=== PATIENT | female | born 1995 | race Caucasian/White ===

== ENCOUNTER → 2016-09-22 | Outpatient (CLI) | payer OTHER ==
[~2016-09-22] MED LIST: AMOX875T PO; IBUP600T44 PO; MEDR150I IM; NAPR-1169 PO
== END | disposition home or self-care (01) ==
LOC: C.PATHSPEC 14:21
PROVIDERS: ATTEND Obstetrics & Gynecology
DX: R87.613 High grade squamous intraepithelial lesion on cytologic smear of cervix (HGSIL) (principal)

== ENCOUNTER 2016-10-01 16:35 | Emergency (ER) | payer OTHER ==
[~2016-10-01] VITALS: Ht 170.2 cm; Wt 70.8 kg
[2016-10-01 16:46] VITALS: TEMP 36.9; Ht 170.2 cm; Wt 70.8 kg
[2016-10-01] MEDS ORDERED: SODIUM CHLORIDE 0.9% 1000ML 500 ML IV STA (17:23)
--- NOTE | 2016-10-01 17:32 | EMERGENCY ROOM VISIT NOTE ---
History Report prepared by Kim: Maria C Camacho Under the Supervision of: Dr. Malik Martino M.D. First contact with patient: 17:15 Chief Complaint: RESPIRATORY PROBLEMS Stated Complaint: CHEST PAIN Nursing Triage Summary: currently being treated for a sinus infection, pt on augmentin, today at 1500 pt developed LUQ pain radiating up to her chest and L shoulder, pt states it hurts to take a deep breath History of Present Illness The patient is a 20 year old female who presents to the Emergency Room with complaints of persistent left upper quadrant abdominal pain that radiates to chest and left shoulder. This pain started around 1500 today. She rates her pain a 9/10 in severity. This pain is worse with breathing and movement of her left shoulder. The patient reports that she experienced shortness of breath when the symptoms began but she is no longer experiencing this symptom. The patient denies recent trauma to her left side. She does admit to recent travel to [place] and [place]. The patient is currently being treated with Augmentin for a sinus infection. She was evaluated at [facility] prior to arrival in the ED today where an EKG was performed. Source of History: patient Onset: 1500 today Position: chest (left), shoulder (left), abdomen (LUQ) Symptom Intensity: 9/10 Modifying Factors (Worsening): breathing, movement Associated Symptoms: No SOB Review of Systems See HPI for pertinent positives & negatives. A total of 10 systems reviewed and were otherwise negative. Past Medical & Surgical Surgical Problems: (1) H/O wisdom tooth extraction (2) Hx of tonsillectomy Family History No pertinent family history Social History Smoking Status: Never Smoker Drug Use: none Marital Status: single Housing Status: lives with roommate Occupation Status: student Current/Historical Medications Scheduled Amoxicillin & Pot Clavulanate (Augmentin 875-125 mg), 1 TAB PO BID Ibuprofen (Motrin), 600 MG PO TID Medroxyprogesterone Acetate (C (Depo-Provera Contraceptiv), 150 MG IM UD Allergies Coded Allergies: Sumatriptan (Verified Allergy, Unknown, flushes skin, 10/01/16) Physical Exam Vital Signs Date Time Temp Pulse Resp B/P Pulse Ox O2 Delivery O2 Flow Rate FiO2 10/01/16 18:20 71 16 128/89 98 Room Air 10/01/16 18:03 92 10/01/16 16:48 99 Room Air 2/8/17 16:46 36.9 93 18 153/86 97 Room Air Physical Exam GENERAL: Patient is in no acute distress. HEENT: No acute trauma, normocephalic atraumatic, mucous membranes moist, no nasal congestion, no scleral icterus. NECK: No stridor, no adenopathy, no meningismus, trachea is midline. LUNGS: Clear to auscultation bilaterally, no wheeze, no rhonchi, breath sounds equal. CHEST: Tenderness to left anterior and lateral chest wall. No rash. HEART: Without murmurs gallops or rubs, regular rate and rhythm. ABDOMEN: Soft, nontender, bowel sounds positive, no hernias, no peritonitis. EXTREMITIES: No cyanosis or edema, full range of motion of all the joints without pain or difficulty, no signs for acute trauma. NEUROLOGIC: Oriented x 3, no acute motor or sensory deficits, no focal weakness. SKIN: No rash, no jaundice, no diaphoresis. Medical Decision & Procedures ER Provider Diagnostic Interpretation: X-ray results as stated below per interpretation by me and the radiologist: CHEST ONE VIEW PORTABLE CLINICAL HISTORY: Atypical chest pain COMPARISON STUDY: No previous studies for comparison. FINDINGS: The cardiac and mediastinal contours are normal. There is no evidence of focal pulmonary consolidation. There is no evidence of failure. No pleural effusions are visualized.[ IMPRESSION: No active disease in the chest. Electronically signed by: Beau Evans M.D. 10/01/2016 5:47 PM Dictated Date/Time: 10/01/2016 5:47 PM Laboratory Results 10/01/16 18:00 Red Blood Count 4.66, Mean Corpuscular Volume 86.5, Mean Corpuscular Hemoglobin 30.7, Mean Corpuscular Hemoglobin Concent 35.5, Mean Platelet Volume 10.1, Neutrophils (%) (Auto) 74.6, Lymphocytes (%) (Auto) 18.2, Monocytes (%) (Auto) 5.8, Eosinophils (%) (Auto) 0.6, Basophils (%) (Auto) 0.4, Neutrophils # (Auto) 10.58, Lymphocytes # (Auto) 2.58, Monocytes # (Auto) 0.82, Eosinophils # (Auto) 0.09, Basophils # (Auto) 0.05 10/01/16 18:00 Test 10/01/16 18:00 10/01/16 18:05 White Blood Count 14.18 K/uL (4.8-10.8) Red Blood Count 4.66 M/uL (4.2-5.4) Hemoglobin 14.3 g/dL (12.0-16.0) Hematocrit 40.3 % (37-47) Mean Corpuscular Volume 86.5 fL (80-100) Mean Corpuscular Hemoglobin 30.7 pg (25-34) Mean Corpuscular Hemoglobin Concent 35.5 g/dl (32-36) Platelet Count 251 K/uL (130-400) Mean Platelet Volume 10.1 fL (7.4-10.4) Neutrophils (%) (Auto) 74.6 % Lymphocytes (%) (Auto) 18.2 % Monocytes (%) (Auto) 5.8 % Eosinophils (%) (Auto) 0.6 % Basophils (%) (Auto) 0.4 % Neutrophils # (Auto) 10.58 K/uL (1.4-6.5) Lymphocytes # (Auto) 2.58 K/uL (1.2-3.4) Monocytes # (Auto) 0.82 K/uL (0.11-0.59) Eosinophils # (Auto) 0.09 K/uL (0-0.5) Basophils # (Auto) 0.05 K/uL (0-0.2) RDW Standard Deviation 37.7 fL (36.4-46.3) RDW Coefficient of Variation 12.0 % (11.5-14.5) Immature Granulocyte % (Auto) 0.4 % Immature Granulocyte # (Auto) 0.06 K/uL (0.00-0.02) Anion Gap 11.0 mmol/L (3-11) Est Creatinine Clear Calc Drug Dose 118.6 ml/min Estimated GFR () 136.5 Estimated GFR (Non- 117.7 BUN/Creatinine Ratio 22.7 (10-20) Calcium Level 9.3 mg/dl (8.5-10.1) Bedside D-Dimer 232 ng/mlFEU (0-450) Bedside Troponin I 0.000 ng/ml (0-0.045) Laboratory results reviewed by me. Medications Administered Medications (Trade) Dose Ordered Sig/Sharon Route Start Time Stop Time Status Last Admin Dose Admin Sodium Chloride (Nss 1000ml) 500 ml @ 999 mls/hr Q31M STAT IV 10/01/16 17:23 10/01/16 17:53 DC 10/01/16 17:57 999 MLS/HR Ketorolac Tromethamine (Toradol Inj) 30 mg NOW STAT IV 10/01/16 18:15 10/01/16 18:17 DC 10/01/16 18:20 30 MG ECG Indication: chest pain Rate (beats per minute): 78 Rhythm: normal sinus Findings: no acute ischemic change, no ectopy ED Course 171: The patient was evaluated in room C12. A complete history and physical exam was performed. 172: Sodium Chloride 500 ml @ 999 mls/hr IV. 1811: The patient is requesting pain medication. I will order Toradol. 1814: Ordered Toradol Injection 30 mg IV. 1840: Reevaluated the patient. Discussed results and discharge instructions: She verbalized understanding and agreement. The patient is ready for discharge. Medical Decision Differential diagnosis includes but is not limited to: Musculoskeletal pain, pulmonary embolism, pneumonia, aortic dissection, pneumothorax, bronchitis, cardiac ischemia There is a mild leukocytosis which could be consistent with infection or just her pain. No concerning anemia. No significant electrolyte abnormality, kidney failure. Cardiac enzyme testing 1 is not consistent with acute cardiac injury. EKG shows a normal sinus rhythm, no acute ischemia. D-dimer testing is negative. With a negative d-dimer and my low suspicion for PE, I will stop the workup for this diagnosis. Chest film shows no mediastinal widening, pneumonia or pneumothorax. The patient presents with left-sided chest pain which is reproducible. She is afebrile, she is not hypoxic. She is in no significant distress. Her pain is likely musculoskeletal. The patient was given IV saline and IV Toradol, she is being discharged with Motrin, heat, rest. She will finish her course of Augmentin. If worsening, she can return. Impression Primary Impression: Left sided chest pain Scribe Attestation The scribe's documentation has been prepared under my direction and personally reviewed by me in its entirety. I confirm that the note above accurately reflects all work, treatment, procedures, and medical decision making performed by me. Departure Information Dispostion Home / Self-Care Prescriptions Ibuprofen (Motrin) 600 Mg Tab 600 MG PO TID, #15 TAB With Food Prov: Malik Martino M.D. 10/01/16 Referrals Kelly Blanton C.R.N.P. (PCP) Forms HOME CARE DOCUMENTATION FORM, IMPORTANT VISIT INFORMATION, WORK / SCHOOL INSTRUCTIONS Patient Instructions My [facility] Additional Instructions motrin 600 mg 3x per day for 5 days heat to the chest wall finish all the augmentin that was prescribed return for worsening pain, shortness or breath, fever return if not improving heart and lung testing today was ok
--- NOTE | 2016-10-01 17:48 | DIAGNOSTIC IMAGING REPORT ---
CHEST ONE VIEW PORTABLE CLINICAL HISTORY: Atypical chest pain COMPARISON STUDY: No previous studies for comparison. FINDINGS: The cardiac and mediastinal contours are normal. There is no evidence of focal pulmonary consolidation. There is no evidence of failure. No pleural effusions are visualized.[ IMPRESSION: No active disease in the chest. Electronically signed by: Beau Evans M.D. 10/01/2016 5:47 PM Dictated Date/Time: 10/01/2016 5:47 PM
[2016-10-01] MEDS ORDERED: MEDR150I IM (18:11)
[2016-10-01] MEDS ORDERED: AMOX875T PO (18:11)
[2016-10-01 18:14] LABS: BASO % 0.4 %; BASO ABS # 0.05 K/uL (0-0.2); COMPLETE YES; EOS % 0.6 %; HEMATOCRIT 40.3 % (37-47); IG% 0.4 %; LYMPH % 18.2 %; LYMPH ABS # 2.58 K/uL (1.2-3.4); MEAN CELL VOLUME 86.5 fL (80-100); MEAN CORPUSCULAR HEMOGLOBIN 30.7 pg (25-34); MEAN CORPUSCULAR HGB CONC 35.5 g/dl (32-36); MEAN PLATELET VOLUME 10.1 fL (7.4-10.4); MONO % 5.8 %; NEUT % 74.6 %; PLATELET COUNT 251 K/uL (130-400); RED BLOOD COUNT 4.66 M/uL (4.2-5.4); WHITE BLOOD COUNT 14.18 K/uL (4.8-10.8)
[2016-10-01] MEDS ORDERED: KETOROLAC TROMETHAMINE 30 MG/ML VIAL IV STA (18:15)
[2016-10-01 18:29] LABS: BUN/CREATININE RATIO 22.7 (10-20); CALCIUM 9.3 mg/dl (8.5-10.1); CREATININE 0.73 mg/dl (0.60-1.20); POTASSIUM 3.4 mmol/L (3.5-5.1)
[2016-10-01] MEDS ORDERED: IBUP600T44 PO (18:47)
[2016-10-01 19:16] VITALS: BP 105/74; PULSE 77; O2SAT 99
== END 2016-10-01 19:17 | disposition home or self-care (01) ==
LOC: C.EDB 16:37 → C.EDC 19:17
DX: R07.9 Chest pain, unspecified (principal)

== ENCOUNTER 2016-10-19 01:34 | Emergency (ER) | payer OTHER ==
[~2016-10-19] VITALS: Ht 170.2 cm; Wt 72.0 kg
[~2016-10-19 01:34] MED LIST changes: -NAPR-1169 PO
[2016-10-19 01:48] VITALS: TEMP 37.1; Ht 170.2 cm; Wt 72.0 kg
[2016-10-19] MEDS ORDERED: SODIUM CHLORIDE 0.9% 500ML 500 ML IV STA (03:01)
[2016-10-19] MEDS ORDERED: KETOROLAC TROMETHAMINE 30 MG/ML VIAL IV STA (03:01)
[2016-10-19 03:07] VITALS: O2SAT 97
[2016-10-19 03:20] LABS: BASO % 0.6 %; BASO ABS # 0.04 K/uL (0-0.2); COMPLETE YES; EOS % 1.7 %; HEMATOCRIT 40.8 % (37-47); IG% 0.8 %; LYMPH % 47.2 %; LYMPH ABS # 3.05 K/uL (1.2-3.4); MEAN CELL VOLUME 86.6 fL (80-100); MEAN CORPUSCULAR HEMOGLOBIN 30.8 pg (25-34); MEAN CORPUSCULAR HGB CONC 35.5 g/dl (32-36); MEAN PLATELET VOLUME 10.5 fL (7.4-10.4); MONO % 6.5 %; NEUT % 43.2 %; PLATELET COUNT 249 K/uL (130-400); RED BLOOD COUNT 4.71 M/uL (4.2-5.4); WHITE BLOOD COUNT 6.46 K/uL (4.8-10.8)
[2016-10-19 03:23] LABS: URINE APPEARANCE CLEAR (CLEAR); URINE BILIRUBIN NEG (NEG); URINE COLOR YELLOW; URINE NITRITE NEG (NEG); URINE SPECIFIC GRAVITY 1.004 (1.000-1.030); UROBILINOGEN NEG (NEG); ZZUR CULT IF INDIC CLEAN CATCH NO
[2016-10-19 03:26] LABS: PARTIAL THROMBOPLASTIN RATIO 1.1; PROTHROMBIN TIME (PATIENT) 10.8 SECONDS (9.0-12.0)
[2016-10-19 03:29] LABS: CALCIUM 8.2 mg/dl (8.5-10.1); MAGNESIUM 2.2 mg/dl (1.8-2.4)
[2016-10-19 03:29] LABS: MANUAL MICROSCOPIC REQUIRED? NO; REVIEW REQ? NO
[2016-10-19 03:30] LABS: CREATININE 0.74 mg/dl (0.60-1.20)
[2016-10-19 03:31] LABS: BUN/CREATININE RATIO 14.4 (10-20)
[2016-10-19 03:33] LABS: ALB/GLOB RATIO 1.1 (0.9-2)
[2016-10-19 03:49] LABS: CKMB/CK RATIO 0.6 (0-3.0)
[2016-10-19] MEDS ORDERED: NAPR-1169 PO (05:06)
--- NOTE | 2016-10-19 05:07 | EMERGENCY ROOM VISIT NOTE ---
History First contact with patient: 02:15 Chief Complaint: CHEST PAIN Stated Complaint: CHEST PAIN,HARD TO BREATHE Nursing Triage Summary: Triage Notes: "Patient states, "I feel like my heart is coming out of my chest. " Seen here x1 week ago for same s/s. " History of Present Illness The patient is a 20 year old female who presents to the Emergency Department by private vehicle for evaluation of her chest discomfort, palpitations, and difficulty with breathing. She was seen a week ago for similar symptoms. She reports that initially the pain was located to the LEFT-sided chest. She now describes RIGHT-sided chest, rib pain. She does report that she tripped earlier and kind of jostled as she almost fell. Since then, she's had pain to the RIGHT-sided lower ribs. She is tried nothing [id number] for her symptoms. She rates her current discomfort as 8/10. She denies any fevers, chills, recent illness, hemoptysis, nausea, vomiting, or abdominal pain. She reports no recent long-distance travel. She does not use control. She is not a smoker. There is no family history of blood clots or bleeding disorders otherwise. Review of Systems A complete 10-point Review of Systems was discussed with the patient, with pertinent positives and negatives listed in the History of Present Illness. All remaining Review of Systems questions can be considered negative unless otherwise specified. Past Medical/Surgical History Surgical Problems: (1) H/O wisdom tooth extraction (2) Hx of tonsillectomy Family History No pertinent family history Social History Smoking Status: Never Smoker Smokeless Tobacco Use: No Drug Use: none Marital Status: single Housing Status: lives with roommate Occupation Status: student Current/Historical Medications Scheduled Medroxyprogesterone Acetate (C (Depo-Provera Contraceptiv), 150 MG IM UD Naproxen (Naprosyn), 500 MG PO BID Allergies Coded Allergies: Sumatriptan (Verified Allergy, Unknown, flushes skin, 10/01/16) Physical Exam Vital Signs Date Time Temp Pulse Resp B/P Pulse Ox O2 Delivery O2 Flow Rate FiO2 10/19/16 05:25 97 18 109/71 99 10/19/16 03:25 92 18 109/65 97 Room Air 10/19/16 03:07 97 Room Air 10/19/16 02:04 97 Room Air 10/19/16 01:48 37.1 131 18 129/95 97 Room Air Pain Rating (0-10): 8 Physical Exam VITAL SIGNS - Vital signs and nursing notes were reviewed. GENERAL - 20-year-old female appearing her stated age who is in no acute distress. Communicates well with provider and answers questions appropriately. HEAD - NC/AT. EYES - PERRL with EOMI bilaterally. Sclera anicteric. Palpebral conjunctiva pink and moist with no injection noted. EARS - No deformities of external structures noted on gross examination bilaterally. No pain elicited with palpation of the tragus bilaterally. External auditory canals without discharge or otorrhea. Tympanic membranes pearly leslie without retraction or bulging. NOSE - Midline and without cyanosis. No epistaxis or purulent drainage noted. Septum midline without deviation or septal hematoma noted. MOUTH/OROPHARYNX - Without perioral cyanosis. Buccal mucosa pink and moist and without leukoplakia. Tongue midline with equal elevation of palate bilaterally. No tonsillar hypertrophy, erythema, or exudates noted. Good dentition noted. NECK - Neck with FROM. Supple to palpation. LUNGS - Chest wall symmetric without accessory muscle use, intercostals retractions, or central cyanosis. Normal vesicular breath sounds CTA B/L. No wheezes, rales, or rhonchi appreciated. CARDIAC - RRR with S1/S2. No murmur, rubs, or gallops appreciated. Mild reproducible tenderness to palpation appreciated over the RIGHT-sided anterior chest wall. ABDOMEN - Abdominal contour flat and without pulsations or visible masses. BS normoactive all four quadrants. No tenderness, palpable masses, hepatosplenomegaly, or ascites noted. EXTREMITIES - No clubbing or peripheral cyanosis. No pretibial edema present. +3 /5 radial and dorsalis pedis pulses palpated throughout. +5/5 strength noted in UE/LE bilaterally. NEUROLOGIC - Cranial nerves II through XII grossly intact. Sensory intact to light touch throughout. PSYCH - A&Ox3 and cooperates fully with examiner. Pt is very pleasant and interacts well with examiner. Medical Decision & Procedures ER Provider Diagnostic Interpretation: Radiological imaging and reports were reviewed by myself. Radiologist's Interpretation as follows: CHEST ONE VIEW PORTABLE HISTORY: RIGHT sided rib pain COMPARISON: Chest 10/01/2016. FINDINGS: The lungs are clear. Cardiac silhouette is normal in size. No pleural effusions. No pneumothorax. IMPRESSION: No acute process. Laboratory Results 10/19/16 02:00 Red Blood Count 4.71, Mean Corpuscular Volume 86.6, Mean Corpuscular Hemoglobin 30.8, Mean Corpuscular Hemoglobin Concent 35.5, Mean Platelet Volume 10.5, Neutrophils (%) (Auto) 43.2, Lymphocytes (%) (Auto) 47.2, Monocytes (%) (Auto) 6.5, Eosinophils (%) (Auto) 1.7, Basophils (%) (Auto) 0.6, Neutrophils # (Auto) 2.79, Lymphocytes # (Auto) 3.05, Monocytes # (Auto) 0.42, Eosinophils # (Auto) 0.11, Basophils # (Auto) 0.04 10/19/16 02:00 Test 10/19/16 02:00 10/19/16 02:25 10/19/16 03:22 White Blood Count 6.46 K/uL (4.8-10.8) Red Blood Count 4.71 M/uL (4.2-5.4) Hemoglobin 14.5 g/dL (12.0-16.0) Hematocrit 40.8 % (37-47) Mean Corpuscular Volume 86.6 fL (80-100) Mean Corpuscular Hemoglobin 30.8 pg (25-34) Mean Corpuscular Hemoglobin Concent 35.5 g/dl (32-36) Platelet Count 249 K/uL (130-400) Mean Platelet Volume 10.5 fL (7.4-10.4) Neutrophils (%) (Auto) 43.2 % Lymphocytes (%) (Auto) 47.2 % Monocytes (%) (Auto) 6.5 % Eosinophils (%) (Auto) 1.7 % Basophils (%) (Auto) 0.6 % Neutrophils # (Auto) 2.79 K/uL (1.4-6.5) Lymphocytes # (Auto) 3.05 K/uL (1.2-3.4) Monocytes # (Auto) 0.42 K/uL (0.11-0.59) Eosinophils # (Auto) 0.11 K/uL (0-0.5) Basophils # (Auto) 0.04 K/uL (0-0.2) RDW Standard Deviation 40.1 fL (36.4-46.3) RDW Coefficient of Variation 12.7 % (11.5-14.5) Immature Granulocyte % (Auto) 0.8 % Immature Granulocyte # (Auto) 0.05 K/uL (0.00-0.02) Prothrombin Time 10.8 SECONDS (9.0-12.0) Prothromb Time International Ratio 1.0 (0.9-1.1) Activated Partial Thromboplast Time 27.9 SECONDS (21.0-31.0) Partial Thromboplastin Ratio 1.1 Anion Gap 9.0 mmol/L (3-11) Est Creatinine Clear Calc Drug Dose 117.0 ml/min Estimated GFR () 134.2 Estimated GFR (Non- 115.8 BUN/Creatinine Ratio 14.4 (10-20) Calcium Level 8.2 mg/dl (8.5-10.1) Magnesium Level 2.2 mg/dl (1.8-2.4) Total Bilirubin 0.3 mg/dl (0.2-1) Aspartate Amino Transf (AST/SGOT) 23 U/L (15-37) Alanine Aminotransferase (ALT/SGPT) 41 U/L (12-78) Alkaline Phosphatase 65 U/L (45-117) Total Creatine Kinase 133 U/L (26-192) Creatine Kinase MB 0.8 ng/ml (0.5-3.6) Creatine Kinase MB Ratio 0.6 (0-3.0) Total Protein 8.0 gm/dl (6.4-8.2) Albumin 4.2 gm/dl (3.4-5.0) Globulin 3.8 gm/dl (2.5-4.0) Albumin/Globulin Ratio 1.1 (0.9-2) Lipase 245 U/L (73-393) Urine Color YELLOW Urine Appearance CLEAR (CLEAR) Urine pH 5.0 (4.5-7.5) Urine Specific Bison 1.004 (1.000-1.030) Urine Protein NEG (NEG) Urine Glucose (UA) NEG (NEG) Urine Ketones NEG (NEG) Urine Occult Blood NEG (NEG) Urine Nitrite NEG (NEG) Urine Bilirubin NEG (NEG) Urine Urobilinogen NEG (NEG) Urine Leukocyte Esterase NEG (NEG) Urine Test NEG (NEG) Bedside D-Dimer 226 ng/mlFEU (0-450) Bedside Troponin I 0.000 ng/ml (0-0.045) Medications Administered Medications (Trade) Dose Ordered Sig/Sharon Route Start Time Stop Time Status Last Admin Dose Admin Ketorolac Tromethamine 30 mg 30 mg NOW STAT IV 10/19/16 03:01 10/19/16 03:07 DC 10/19/16 03:22 30 MG Sodium Chloride (Nss 500ml) 500 ml @ 999 mls/hr Q31M STAT IV 10/19/16 03:01 10/19/16 03:31 DC 10/19/16 03:22 999 MLS/HR Procedure Patient was placed on the equipment monitor phototypesetting and monitored throughout the entire extent of their stay. In addition, the patient's pulse oximetry was monitored throughout the entire stay. Any abnormalities or aberrancies were addressed appropriately. ECG Indication: chest pain Rate (beats per minute): 78 Rhythm: normal sinus Findings: no acute ischemic change, no ectopy Change: no significant change (from 10/02/2016.) ED Course Patient was seen and evaluated by myself. Labs were drawn, saline lock in place. The patient received 30 mg Toradol intravenously for pain. She was hydrated with a 500 mL normal saline bolus. EKG and chest x-rays were obtained. Previous emergency department visit notes were reviewed. Laboratory results demonstrate no acute leukocytosis, worrisome anemia, or bandemia. The patient has no significant electrolyte abnormalities. Cardiac enzymes are negative. D-dimer was not elevated. Troponin was not elevated. Patient was reevaluated and is resting comfortably at this point. She was educated on laboratory results and imaging studies. She was encouraged to follow-up with her primary care provider from today's visit. She was educated on worrisome symptoms for return visit to the emergency department. Patient discharged home afebrile and in good condition. Medical Decision Given the patient's presentation and exam findings, I did elect to perform the above-mentioned workup. The patient presents today with complaints of chest pain and difficulty with breathing. She was seen in this facility approximately one week ago for similar symptoms. She had an unremarkable workup at that time. The patient has an unremarkable workup today. She feels much better after IV Toradol. She was encouraged to follow up with her primary care provider from today's visit. She was educated on worrisome symptoms for return visit to the emergency department. Patient discharged home afebrile and in good condition. In the evaluation and treatment of this patient, the following differential diagnoses were considered: NV, ASC, Dysrhythmia, Angina, Mediastinitis, GERD, Esophagitis, PE, Pneumonia, Bronchitis, Costochondritis, Rib Fracture, Zoster. Impression Primary Impression: Right-sided chest pain Departure Information Dispostion Home / Self-Care Condition GOOD Prescriptions Naproxen (Naprosyn) 500 Mg Tab 500 MG PO BID for 7 Days, #14 TAB Prov: Leonard Ang PA-C 10/19/16 Referrals Kelly Blanton C.R.N.P. (PCP) Patient Instructions Chest Pain - [facility], [facility] Additional Instructions You have been treated in the Emergency Department for your Non-Cardiac Chest Pain. Laboratory results and Imaging Studies have ruled out any cardiac or pulmonary cause of your chest pain. You have been prescribed Naprosyn (naproxen). This is an anti-inflammatory medication used to help decrease your symptoms and improve your pain. Please take this medication as prescribed. It is best to take this medication with food. Please to not take this antibiotic with other NSAIDS including: Ibuprofen , Advil, Motrin, Aspirin, Aleve, Celebrex, etc. For pain control, you can use the following [id number] medicines (if >12 yo): - Regular strength (325mg/tab) Tylenol (acetaminophen) 2 tabs every 4-6 hours as needed. Do not exceed 12 tablets in a 24 hour period. Avoid taking more than 4 grams (4000 mg) of Tylenol per day. This includes any other sources of acetaminophen you may take on a regular basis. You should schedule a follow-up appointment with your Primary Care Provider in 2 -3 days for further evaluation from today's Emergency Department visit. Return to the Emergency Department if your current symptoms worsen despite treatment course outlined above, or if you develop any of the following symptoms : worsening chest pain, associated jaw/arm pain, nausea, dizziness, shortness of breath, bloody cough, or fainting.
[2016-10-19 05:25] VITALS: BP 109/71; PULSE 97; O2SAT 99
--- NOTE | 2016-10-19 07:36 | DIAGNOSTIC IMAGING REPORT ---
CHEST ONE VIEW PORTABLE HISTORY: RIGHT sided rib pain COMPARISON: Chest 10/01/2016. FINDINGS: The lungs are clear. Cardiac silhouette is normal in size. No pleural effusions. No pneumothorax. IMPRESSION: No acute process. Electronically signed by: Abel Weiner M.D. 10/19/2016 7:34 AM Dictated Date/Time: 10/19/2016 7:33 AM
== END 2016-10-19 05:20 | disposition home or self-care (01) ==
LOC: C.EDB 01:36 → C.EDC 05:20
DX: R07.9 Chest pain, unspecified (principal)

== ENCOUNTER → 2017-01-29 | Outpatient (CLI) | payer OTHER ==
[~2017-01-29] MED LIST changes: -AMOX875T PO; -IBUP600T44 PO
== END | disposition home or self-care (01) ==
LOC: C.MAMM 10:46
PROVIDERS: ATTEND Nurse Practitioner Adult Health
DX: M85.80 Other specified disorders of bone density and structure, unspecified site (principal)